=== PATIENT | male | born 1965 | race Caucasian/White ===

== ENCOUNTER 2018-02-08 15:19 | Emergency (ER) | payer SELFPAY ==
[2018-02-08 15:53] VITALS: BP 137/83
--- NOTE | 2018-02-08 16:00 | UC ---
Headache HPI - HPI Summary HPI Summary: 52 yo male presents with sudden onset frontal headache for the last 5 days. Says that it seems to get worse, but then gets a little better - but is present constantly. He tells me that a few days before he developed the headache he felt extremely fatigued and had an upset stomach. He says that he never gets headaches. Never been bitten by a tick that he is aware of. Has felt hot and cold with random sweats at times. Nothing makes it better or worse. Denies sinus symptoms, sore throat, cough, SOB, chest pain, abdominal pain, n/v/d/c, dysuria, or weakness. - History Of Current Complaint Chief Complaint: UCHeadache Stated Complaint: HEADACHE,FEVER Hx Obtained From: Patient Onset/Duration: Sudden Onset Onset Of Symptoms: Sudden Initially Headache Was: Mild Currently Pain Is: Moderate Pain Intensity: 5 Pain Scale Used: 0-10 Numeric Timing: Constant Character: Dull, Throbbing, Pressure Location of Headache: Frontal Aggravating Factor(s): Nothing Allevating Factor(s): Nothing - Allergies/Home Medications Allergies/Adverse Reactions: Allergies Allergy/AdvReac Type Severity Reaction Status Date / Time No Known Allergies Allergy Verified 02/08/18 15:53 Home Medications: Home Medications NK [No Home Medications Reported] 02/08/18 [History Confirmed 02/08/18] PMH/Surg Hx/FS Hx/Imm Hx - Additional Past Medical History Additional PMH: None Previously Healthy: Yes - Surgical History Surgical History: None - Family History Known Family History: Positive: None - Social History Occupation: Employed Full-time Lives: With Family Alcohol Use: Weekly Substance Use Type: None Smoking Status (MU): Never Smoked Tobacco Review of Systems Constitutional: Negative Skin: Negative Eyes: Negative ENT: Negative Respiratory: Negative Cardiovascular: Negative Gastrointestinal: Negative Genitourinary: Negative Motor: Negative Neurovascular: Negative Musculoskeletal: Negative Neurological: Headache Psychological: Negative All Other Systems Reviewed And Are Negative: Yes Physical Exam - Summary Physical Exam Summary: GENERAL: NAD. WDWN. No pain distress. SKIN: No rashes, sores, ulcers, or open wounds. HEENT: Head: AT/NC Eyes: PERRLA. EOM intact. Conjunctiva clear without inflammation or discharge. Ears: Hearing grossly normal. TMs intact, no bulging, erythema, or edema. Nose: Nasal mucosa pink and moist. NTTP maxillary and frontal sinus. Throat: Posterior oropharynx without exudates, erythema, or tonsillar enlargement. Uvula midline. NECK: Supple. Nontender. No lymphadenopathy. CHEST: CTAB. No r/r/w. No accessory muscle use. Breathing comfortably and in no distress. CV: RRR. Without m/r/g. Pulses intact. Brisk cap refill. ABDOMEN: Soft. NTTP. No distention or guarding. No organomegaly. No CVA tenderness. Bowel sounds present MSK: FROM in B/L UEs and LEs with symmetric strength. NEURO: A&Ox3. 3 word recall, remote, recent memory, ability to follow 2-step directions, and attention intact. CN II XII grossly intact. Jmxlou-of-spyk are intact. Gait with normal base. Romberg: maintains balance, no pronator drift. Normal speech. No facial drooping. Negative kernig and brudzinski. PSYCH: Age appropriate behavior. Triage Information Reviewed: Yes Vital Signs: Initial Vital Signs Temp 97.6 F 02/08/18 15:45 Pulse 62 02/08/18 15:45 Resp 14 02/08/18 15:45 BP 137/83 02/08/18 15:45 Pulse Ox 98 02/08/18 15:45 Headache Course/Dx - Course Course Of Treatment: I discussed with the patient that I am unsure as to the cause of his ongoing headache. I told him that I would like to get a head CT and labwork - unfortunately we do not have that ability at at the time of his visit. He elected to go to the ER for further evaluation. - Differential Dx/Diagnosis Provider Diagnoses: Headache Discharge - Sign-Out/Discharge Documenting (check all that apply): Discharge/Admit/Transfer - Discharge Plan Condition: Stable Disposition: HOME Referrals: Fidel Ponce MD [Primary Care Provider] - Additional Instructions: Please go to the ER for further evaluation of your symptoms - Billing Disposition and Condition Condition: STABLE Disposition: Home
== END 2018-02-08 16:15 | disposition home or self-care (01) ==
LOC: UCEAST 15:19
DX: R51 Headache (principal); R50.9 Fever, unspecified
CPT/HCPCS: 99202; G0463

== ENCOUNTER 2018-02-08 16:35 | Emergency (ER) | payer SELFPAY ==
[2018-02-08 17:44] LABS: ABS Basophils 0.1 10^3/ul (0-0.2); ABS Eosinophils 0.1 10^3/ul (0-0.6); ABS Lymphocytes 1.1 10^3/ul (1.0-4.8); ABS Monocytes 1.1 10^3/ul (0-0.8); ABS Neutrophils 7.5 10^3/ul (1.5-7.7); ABS Nucleated RBC 0 10^3/ul; Hematocrit 46 % (42-52); Hemoglobin 16.2 g/dl (14.0-18.0); Lymphocyte % 11.2 % (25-47); Mean Corpuscular HGB Conc 35 g/dl (31-36); Mean Corpuscular Hemoglobin 30 pg (27-31); Mean Corpuscular Volume 84 fL (80-94); Mean Platelet Volume 7.4 um3 (7.4-10.4); Nucleated Red Blood Cells % 0.4; Platelet Count 226 10^3/ul (150-450); Red Blood Count 5.48 10^6/ul (4.00-5.40); Red Cell Distribution Width 12 % (10.5-15); White Blood Count 9.9 10^3/ul (3.5-10.8)
[2018-02-08] MEDS ORDERED: Acetaminophen TAB* 325 MG PO ONE (17:57)
[2018-02-08 18:01] LABS: EGFR Non-African American 71.3 (>60)
--- NOTE | 2018-02-08 18:14 | RAD ---
INDICATION: Headaches COMPARISON: None TECHNIQUE: Noncontrast axial source images were acquired from the skull base to the vertex. FINDINGS: Ventricles/sulci: The ventricles and cisterns are normal in size and configuration for age. Brain parenchyma: There is no focal parenchymal finding, evidence of intracranial mass, or intracranial mass effect. Intracranial hemorrhage:None. Extra-axial spaces: There are no abnormal extra axial fluid collections or evidence of extra-axial mass. Calvarium: There is no calvarial fracture or other calvarial abnormality. Scalp: There is no evidence of scalp or extracalvarial soft tissue abnormality. Paranasal sinuses/mastoid: The paranasal sinuses and mastoid air cells are clear. Other: None. IMPRESSION: NEGATIVE EXAMINATION
--- NOTE | 2018-02-08 18:57 | ED ---
Headache - HPI Summary HPI Summary: Patient sent from [facility] for further evaluation of headache, fatigue, light sensitivity, sweats, chills 3 days. Headaches described as bifrontal, constant. No prior history of headaches, tick bite. Denies trauma, AMS, focal deficits, neck pain, vision change, ear pain, cough, sore throat, CP, SOB, N/V/D , abdomen pain, joint pain, change in urinary BM. Medical history is none. Patient taking no medications. Patient uses nonprescription reading glasses, and often gets eye fatigue from working on the computer. - History Of Current Complaint Chief Complaint: EDHeadache Stated Complaint: HEADACHE,LIGHT SENSITIVITY,FATIGUE Time Seen by Provider: 02/08/18 17:32 Hx Obtained From: Patient Onset/Duration: Gradual Onset Initially Headache Was: Moderate Currently Pain Is: Mild Timing: Constant Character: Dull Location of Headache: Frontal Aggravating Factor: Bright Lights Allevating Factors: Nothing Associated Signs And Symptoms: Negative - Allergies/Home Medications Allergies/Adverse Reactions: Allergies Allergy/AdvReac Type Severity Reaction Status Date / Time No Known Allergies Allergy Verified 02/08/18 16:42 PMH/Surg Hx/FS Hx/Imm Hx Endocrine/Hematology History: Denies: Hx Anticoagulant Therapy Cardiovascular History: Denies: Hx Angina History: Denies: Hx Dialysis EENT History: Denies: Hx Deafness Neurological History: Denies: Hx CVA Infectious Disease History: No Infectious Disease History: Denies: Traveled Outside the [place] in Last 30 Days - Family History Known Family History: Positive: None - Social History Alcohol Use: Occasionally Substance Use Type: Reports: None Smoking Status (MU): Never Smoked Tobacco Review of Systems Positive: Chills Positive: Photophobia ENT: Negative Cardiovascular: Negative Respiratory: Negative Gastrointestinal: Negative Genitourinary: Negative Musculoskeletal: Negative Skin: Negative Positive: Headache Psychological: Normal All Other Systems Reviewed And Are Negative: Yes Physical Exam - Summary Physical Exam Summary: Full range of motion of neck. Negative Kernig's and Brudzinski. Triage Information Reviewed: Yes Vital Signs On Initial Exam: Initial Vitals Temp Pulse Resp BP Pulse Ox 97.6 F 57 18 149/94 99 02/08/18 16:38 02/08/18 16:38 02/08/18 16:38 02/08/18 16:38 06/24/18 16:38 Vital Signs Reviewed: Yes Appearance: Positive: Well-Appearing Skin: Positive: Warm Head/Face: Positive: Normal Head/Face Inspection Eyes: Positive: Normal ENT: Positive: Normal ENT inspection Neck: Positive: Supple Respiratory/Lung Sounds: Positive: Clear to Auscultation Cardiovascular: Positive: Normal Abdomen Description: Positive: Nontender Musculoskeletal: Positive: Normal Neurological: Positive: Normal Psychiatric: Positive: Normal AVPU Assessment: Alert - [place] Coma Scale Best Eye Response: 4 - Spontaneous Best Motor Response: 6 - Obeys Commands Best Verbal Response: 5 - Oriented Coma Scale Total: 15 Diagnostics - Vital Signs Vital Signs Temp Pulse Resp BP Pulse Ox 02/08/18 18:14 55 141/86 97 02/08/18 18:00 58 98 02/08/18 17:59 58 99 02/08/18 16:38 97.6 F 57 18 149/94 99 - Laboratory Lab Results: Lab Results 02/08/18 02/08/18 02/08/18 Range/Units 17:33 17:33 18:22 WBC 9.9 (3.5-10.8) 10^3/ul RBC 5.48 H (4.00-5.40) 10^6/ul Hgb 16.2 (14.0-18.0) g/dl Hct 46 (42-52) % MCV 84 (80-94) fL MCH 30 (27-31) pg MCHC 35 (31-36) g/dl RDW 12 (10.5-15) % Plt Count 226 (150-450) 10^3/ul MPV 7.4 (7.4-10.4) um3 Neut % (Auto) 75.9 (38-83) % Lymph % (Auto) 11.2 L (25-47) % [place] % (Auto) 11.3 H (0-7) % Eos % (Auto) 1.0 (0-6) % Baso % (Auto) 0.6 (0-2) % Absolute Neuts (auto) 7.5 (1.5-7.7) 10^3/ul Absolute Lymphs (auto) 1.1 (1.0-4.8) 10^3/ul Absolute Monos (auto) 1.1 H (0-0.8) 10^3/ul Absolute Eos (auto) 0.1 (0-0.6) 10^3/ul Absolute Basos (auto) 0.1 (0-0.2) 10^3/ul Absolute Nucleated RBC 0 10^3/ul Nucleated RBC % 0.4 ESR Pending Sodium 134 L (135-145) mmol/L Potassium Pending Chloride 99 L (101-111) mmol/L Carbon Dioxide 29 (22-32) mmol/L Anion Gap Pending BUN 11 (6-24) mg/dL Creatinine 1.09 (0.67-1.17) mg/dL Est GFR ( Amer) 86.3 (>60) Est GFR (Non-Af Amer) 71.3 (>60) BUN/Creatinine Ratio 10.1 (8-20) Glucose 108 H (70-100) mg/dL Lactic Acid 0.8 (0.5-2.0) mmol/L Calcium 9.6 (8.6-10.3) mg/dL Total Bilirubin 0.90 (0.2-1.0) mg/dL AST 18 (13-39) U/L ALT 18 (7-52) U/L Alkaline Phosphatase 86 (34-104) U/L C-Reactive Protein 65.88 H (<8.01) mg/L Total Protein 7.2 (6.4-8.9) g/dL Albumin 4.3 (3.2-5.2) g/dL Globulin 2.9 (2-4) g/dL Albumin/Globulin Ratio 1.5 (1-3) Result Diagrams: 02/08/18 17:33 02/08/18 17:33 Lab Statement: Any lab studies that have been ordered have been reviewed, and results considered in the medical decision making process. - CT brain CT Interpretation: No Acute Changes CT Interpretation Completed By: Radiologist Headache Course/Dx - Course Course Of Treatment: Patient sent from [facility] for further evaluation of headache, fatigue, light sensitivity, sweats, chills 3 days. Headaches described as bifrontal, constant. No prior history of headaches, tick bite. Denies trauma, AMS, focal deficits, neck pain, vision change, ear pain, cough, sore throat, CP, SOB, N/V/D, abdomen pain, joint pain, change in urinary BM. Medical history is none. Patient taking no medications. Patient uses nonprescription reading glasses, and often gets eye fatigue from working on the computer. Neuro exam normal. PERRL. EOM intact. CT brain negative. LARSON improved with Tylenol 650 MG from 11/25-08/27. Vital signs within normal limits. Recommend eye exam, follow-up with neurology if symptoms persist. Patient has not been taking any meds for LARSON, recommend Tylenol or ibuprofen. - Diagnoses Provider Diagnoses: Headache Discharge - Sign-Out/Discharge Documenting (check all that apply): Discharge/Admit/Transfer - Discharge Plan Condition: Stable Disposition: HOME Patient Education Materials: Acute Headache (ED) Referrals: Fidel Ponce MD [Primary Care Provider] - Leigha Frankel MD [Medical Doctor] - Additional Instructions: Follow-up with ophthalmology to get eye exam. If symptoms persist, follow-up with neurology Dr. Frankel. Return to the ED for any new or worsening symptoms - Billing Disposition and Condition Condition: STABLE Disposition: Home
[2018-02-08 20:03] VITALS: BP 131/81
== END 2018-02-08 20:04 | disposition home or self-care (01) ==
LOC: ED 16:35
DX: R51 Headache (principal)
CPT/HCPCS: 36415; 70450; 80053; 83605; 85025; 85652; 86140; 99283; A9270-GY

== ENCOUNTER 2018-06-06 18:05 | Emergency (ER) | payer SELFPAY ==
[2018-06-06 18:14] VITALS: BP 138/67
[2018-06-06] MEDS ORDERED: DOXYcycline CAP(*) 100 MG PO ONE (18:22)
--- NOTE | 2018-06-06 18:24 | ED ---
Bite Injury/Animal - HPI Summary HPI Summary: 53 year male presents with a tick bite to right hip. He states he just noticed an hour ago. He states he did walk in the [place] yesterday. Has a history of Lyme disease. No fevers. He hasn't tried to remove it. he is not allergic to doxycycline. - History of Current Complaint Chief Complaint: EDExtremityLower Stated Complaint: TICK BITE Time Seen by Provider: 06/06/18 18:17 Pain Intensity: 0 - Allergies/Home Medications Allergies/Adverse Reactions: Allergies Allergy/AdvReac Type Severity Reaction Status Date / Time No Known Allergies Allergy Verified 02/08/18 16:42 PMH/Surg Hx/FS Hx/Imm Hx Endocrine/Hematology History: Denies: Hx Anticoagulant Therapy Cardiovascular History: Denies: Hx Angina History: Denies: Hx Dialysis Sensory History: Denies: Hx Deafness Neurological History: Denies: Hx CVA Infectious Disease History: No Infectious Disease History: Denies: Traveled Outside the [place] in Last 30 Days - Family History Known Family History: Positive: None - Social History Alcohol Use: Occasionally Substance Use Type: Reports: None Smoking Status (MU): Never Smoked Tobacco Review of Systems Negative: Fever Negative: Chest Pain Negative: Shortness Of Breath Positive: Other - tick bite right hip All Other Systems Reviewed And Are Negative: Yes Physical Exam Triage Information Reviewed: Yes Vital Signs On Initial Exam: Initial Vitals Temp Pulse Resp BP Pulse Ox 98 F 78 16 138/67 99 06/06/18 18:12 06/06/18 18:12 06/06/18 18:12 06/06/18 18:12 06/06/18 18:12 Vital Signs Reviewed: Yes Appearance: Positive: Well-Appearing Skin: Positive: Warm, Dry, Other - tick present right hip some minimial erythema around Head/Face: Positive: Normal Head/Face Inspection Eyes: Positive: Normal, Conjunctiva Clear ENT: Positive: Pharynx normal Respiratory/Lung Sounds: Positive: Clear to Auscultation, Breath Sounds Present Cardiovascular: Positive: Normal, RRR Musculoskeletal: Positive: Strength/ROM Intact - right hip, Other - good pulses Neurological: Positive: Normal Psychiatric: Positive: Normal Diagnostics - Vital Signs Vital Signs Temp Pulse Resp BP Pulse Ox 06/06/18 18:12 98 F 78 16 138/67 99 - Laboratory Lab Statement: Any lab studies that have been ordered have been reviewed, and results considered in the medical decision making process. Bite Injury Course/Dx - Course Course Of Treatment: 53 year male presents with a tick bite to right hip. He states he just noticed an hour ago. He states he did walk in the [place] yesterday. Has a history of Lyme disease. No fevers. He hasn't tried to remove it. he is not allergic to doxycycline. On exam has tick present on right hip. removed tick with tick twister. We'll give prophylactic dose of doxycycline. Patient understands agrees with plan. - Diagnoses Differential Diagnosis/HQI/PQRI: Positive: Cellulitis, Other - tick, lyme Provider Diagnosis: Tick bite Discharge - Sign-Out/Discharge Documenting (check all that apply): Patient Departure - Discharge Plan Condition: Good Disposition: HOME Patient Education Materials: Tick Bite (ED) Referrals: Fidel Ponce MD [Primary Care Provider] - Additional Instructions: You have been prophylactically treated for Lyme disease wash area with soap and water daily Return to ED if develop any new or worsening symptoms - Billing Disposition and Condition Condition: GOOD Disposition: Home
== END 2018-06-06 19:00 | disposition home or self-care (01) ==
LOC: ED 18:05
DX: S70.261A Insect bite (nonvenomous), right hip, initial encounter (principal); W57.XXXA Bitten or stung by nonvenomous insect and other nonvenomous arthropods, initial encounter; Y93.01 Activity, walking, marching and hiking; Y92.821 Forest as the place of occurrence of the external cause
CPT/HCPCS: 99282; A9270-GY